=== PATIENT | female | born 1990 | race Caucasian/White ===

== ENCOUNTER → 2020-07-26 10:44 | Outpatient (BNVA) | payer OTHER, SELFPAY | PROVIDERS: Visit Provider Nurse Practitioner Family | DX: Z20.828 Contact with and (suspected) exposure to other viral communicable diseases (principal); J06.9 Acute upper respiratory infection, unspecified | CPT/HCPCS: 87635 ==

== ENCOUNTER → 2021-05-27 12:29 | Outpatient (BNVA) | payer OTHER, SELFPAY | PROVIDERS: Visit Provider Nurse Practitioner Family | DX: Z20.822 Contact with and (suspected) exposure to COVID-19 (principal) | CPT/HCPCS: 87635 ==

== ENCOUNTER → 2022-09-28 15:14 | Outpatient (BNVA) | payer OTHER, SELFPAY | PROVIDERS: Visit Provider Family Medicine | DX: R20.0 Anesthesia of skin (principal); R49.0 Dysphonia | CPT/HCPCS: 82607; 82746; 84443; 85025 ==

== ENCOUNTER 2023-04-22 14:13 | Outpatient (CLI) | payer OTHER, SELFPAY ==
--- NOTE | 2023-04-22 14:30 | MR_ITS ---
WS: [id number] MRI BRAIN WITHOUT CONTRAST HISTORY: worsening headaches, hx complex migraines COMPARISON: 09/09/2009 TECHNIQUE: Diffusion imaging, multiplanar T1, T2 and FLAIR imaging obtained. No evidence for acute infarct or hemorrhage. Watson-white matter differentiation is normal. No remote or acute infarcts are volume loss. Ventricles and extra-axial spaces are normal. Normal hippocampal formations. Minimal inferior displacement of the cerebellar tonsils consistent with ectopia. Very similar to the prior study. No Chiari malformation. No fourth ventricle obstruction. No inferior displacement of cer ebellar tonsils. The sella turcica and pituitary gland are unremarkable. Dural venous sinuses and [place] demonstrate no abnormality on this unenhanced studies. Paranasal sinuses: Clear. Mastoid air cells: Normal. Calvarium and scalp: Intact. IMPRESSION: 1. No acute infarct or intracranial edema. 2. Very mild cerebellar ectopia is stable. 3. No small vessel ischemic disease.
== END 2023-04-22 14:14 | disposition home or self-care (01) ==
PROVIDERS: PCP Family Medicine; Visit Provider Family Medicine
DX: G43.109 Migraine with aura, not intractable, without status migrainosus (principal)
CPT/HCPCS: 70551

== ENCOUNTER 2023-04-23 08:03 | Day surgery (SDC) | payer OTHER, SELFPAY ==
[2023-04-22 16:06] VITALS: BMI 29.2
[2023-04-23] VITALS (10 sets, daily range): BP systolic 101–120; BP diastolic 60–87; PULSE 54–91; RESP 14–18; TEMP 36.1–36.6; O2SAT 95–99
[2023-04-23 08:44] LABS: OR HCG Qualitative Urine Negative (Negative)
[2023-04-23] MEDS: acetaminophen 1,000 MG/100 ML PIGGYBACK 400 MG IV (08:57)
[2023-04-23] MEDS: ketorolac 30 mg/mL INJ IVP (08:58)
[2023-04-23] MEDS: sodium chloride 0.9% 1,000 ML 30 ML IV (09:09)
--- NOTE | 2023-04-23 11:35 | P.ANESASSM_ITS ---
Pre-Anesthetic Assessment Height/Weight: Height 1.8 m Weight 95.254 kg Temp Pulse Resp BP Pulse Ox O2 Del Method 97 F L 91 16 104/87 96 Room Air 04/23/23 08:47 04/23/23 08:47 04/23/23 08:47 04/23/23 08:47 04/23/23 08:47 04/23/23 08:47 Preop Diagnosis: Left ulnar nerve entrapment at wrist and elbow Operation Date: 04/23/23 09:50 Proposed Procedures p Cubital Tunnel Release(Left) - Patricio Straussatt, DO s Ulnar Nerve Transposition(Left) - Patricio Noguera, DO Familial anesthetic complications: None Was Beta Mariama taken within 24 hours: N/A Was Clonidine taken within 24 hours: N/A Last intake: Intake Last Liquid Date 04/22/23 Last Liquid Time 21:00 Last Solid Date 04/22/23 Last Solid Time 19:00 Social No alcohol and No tobacco Exam alert, oriented x 3, clear to auscultation bilaterally and regular rate & rhythm Airway Mallampati: Class II Dentition: full Anesthetic Plan ASA status: 2 Anesthesia: MAC Risk of > 500 ml blood loss (7ml/kg in children): No Medications/Allergies Home Medications Medication Instructions Recorded Confirmed Last Taken Type albuterol sulfate 90 mcg/actuation 2 inh inhalation Q4H PRN shortness 04/11/23 04/23/23 04/16/23 Rx aerosol inhaler of breath or wheezing #6.7 grams sumatriptan succinate 25 mg tablet See Rx Instructions PO .COMPLEX 04/23/23 04/23/23 04/16/23 History PRN h/a Allergies Allergy/AdvReac Type Severity Reaction Status Date / Time No Known Allergies Allergy Verified 04/23/23 08:34 Current Medications Generic Name Dose Route Start Last Admin Trade Name Freq PRN Reason Stop Dose Admin Sodium Chloride 1,000 mls @ 30 mls/hr 04/23/23 08:15 04/23/23 09:09 Sodium Chloride 0.9% IV 04/24/23 08:14 30 mls/hr .Q24H JACOBO Administration PFSH Anesthesia Surgical History History of tonsillectomy Family History Father Rheumatoid arthritis Social History Smoking and tobacco status: former smoker Quit status (tobacco): has quit using tobacco Year quit tobacco: jul 2022 Former quit date comment: 1ppd Alcohol intake: current Alcohol intake frequency: holidays/special occasions only Substance/Drug Use: never Lives independently: Yes Household members: children Number of children: 1 Current occupational status: employed Current occupation: patient financial services at [employer] Data Anesthesia Cardiac Studies: No Data to Display
--- NOTE | 2023-04-23 12:12 | P.HPUD_ITS ---
Surgery/Procedure H&P Update DATE OF PROCEDURE: April 23, 2023 DATE H&P PERFORMED: 04/01/23 H&P UPDATE INFORMATION: I have reviewed H&P completed within last 30 days, I have examined patient prior to procedure and No changes to prior documentation CHANGES TO PREVIOUS DOCUMENTATION: Patient continues to have persistent exacerbated symptoms by compression of the ulnar nerve at the wrist and the elbow although her nerve conduction study f indings were not consistent with ulnar nerve neuropathy she does have consistent ulnar nerve symptoms on the small and part of the ring finger she has failed an injection at this point in time like to proceed with left ulnar nerve release at the cubital tunnel and Guyon's canal. Patient understands agrees with current plan. All questions answered. PREOP DIAGNOSIS: Left ulnar nerve entrapment at wrist and elbow PRIMARY INDICATION FOR PROCEDURE: Left ulnar nerve entrapment at wrist and elbow PLANNED PROCEDURE: Operation Date: 04/23/23 09:50 Proposed Procedures p Cubital Tunnel Release(Left) - Patricio Noguera DO s Ulnar Nerve Transposition(Left) - Patricio Noguera DO
[2023-04-23] MEDS: ceFAZolin 2,000 MG in sodium chloride 0.9% (plus) 50 ML 100 MG IV (12:17)
[2023-04-23] MEDS: lidocaine 1% INJ 10 mL (per mL) XX (12:51)
[2023-04-23] MEDS: ROPivacaine 0.5% SDV 30 mL 25 MG INJECTION (12:56)
--- NOTE | 2023-04-23 13:53 | P.BOP_ITS ---
Date of Procedure: 04/23/2023 Surgeon: Patricio Noguera DO Scan Coordinator(s): None Procedure(s) performed: 1. Left ulnar nerve release at Guyon's canal at the wrist 2. Left ulnar nerve release/decompression at the cubital tunnel Findings of the procedure(s): Ulnar nerve entrapment of the left upper extremity at Guyon's canal and cubital tunnel Estimated blood loss: 10 mL Specimen(s) removed: None Post-operative diagnosis: Left ulnar nerve entrapment at the wrist and elbow
--- NOTE | 2023-04-23 13:56 | PM.OP ---
Operative Report Date of procedure: April 23, 2023 Surgeon: Patricio Noguera DO Procedure: Preoperative diagnosis left ulnar nerve entrapment at the wrist and elbow Postop Diagnosis: Same(entrapment at Guyon's canal and cubital tunnel) Procedure done: Left ulnar nerve release at Guyon's canal Left?cubital?tunnel tunnel release (ulnar nerve decompression at elbow) Surgeon: Patricio Noguera DO Estimated blood loss: 10 mL Tourniquet? 30 minutes IV fluids: 1100mL Complications: None Findings: See operative report narrative Condition: stable Disposition: same day Brief History: Patient's been seen and worked up in the outpatient setting and findings consistent with preoperative diagnosis.? Patient has left cubital tunnel and left ulnar entrapment at guyons canal which has been worked up in the outpatient setting has physical exam findings consistent with this. Patient's nerve study showed only possible subtle carpal tunnel but she has no median nerve paresthesias or complaints on examination or on her HPI. All of her complaints are in the ulnar nerve distribution and is provocative on physical exam. Patient's failed conservative treatment.? As result through shared decision making agreed to proceed with?left ulnar nerve release at the wrist and at the elbow. We talked about tx options as nonoperative and operative intervention.? Understands risk benefits complication alternatives surgical nonsurgical treatment options.? Understanding risks pt agrees to proceed with surgical intervention. Understanding these risks pt agrees to proceed with surgery.? Consent obtained in office. Procedure: Patient seen evaluate in the preoperative holding area.? Consent was reviewed and signed with patient.? Correct extremity marked.? Patient seen evaluated by anesthesia department once cleared for surgery was then taken back to the operative suite placed in supine position all bony prominences well-padded patient properly secured to bed.? left upper extremity placed onto armboard.? Nonsterile tourniquet applied left upper arm.? Patient then underwent anesthesia per the anesthesia department.? Patient's left upper extremity was then prepped and draped in standard orthopedic fashion.? Final timeout performed.? Patient received appropriate preoperative antibiotics. Esmarch was used exsanguinate the left upper extremity.? Tourniquet was insufflated to 250 mmHg. I started with my release of the ulnar nerve distally. An extensive laterally based palmar incision that extended proximal past the wrist crease with a Pamela incision was made directly over Guyon's canal. At this point in time incision was made between the Pisa form and hamate to follow neurovascular bundle of Guyon's canal. sharp scalpel incision was subsequently made through skin and then I switched to Littler dissection scissors. At this point in time I dissected down over top guyons canal release the brevis muscle belly along the hypothenar region to obtain access into Guyon's canal. Thick band of fascia was noted proximally just proximal to the wrist crease this was released and made sure there was complete decompression of the ulnar nerve proximally just prior to Guyon's canal subsequently released guyon canal and direct visualization with sharp scalpel excision as well as Littler dissection scissors with care utilizing my corporate legal assistant to protect the neurovascular bundle. At this point in time I continued to perform release of the fascia/the roof of Guyon's canal all the way to its most distal extent and the nerve was found to be completely free and untethered. I then in order to perform release of the deep motor branch I then mobilized my dissection around the ulnar nerve and identified the deep motor branch as it courses towards the under knee fascia connected with the hamate. I then utilized dissection scissors and under direct visualization completed my release carefully of the fascial bands tethering over top of the deep motor branch. At this point in time the ulnar nerve was completely decompressed through Guyon's canal and ulnar nerve had complete laxity with no areas of entrapment or tethering. No masses were noted within the contents of the guyons canal.? This completed the ulnar nerve release at the wrist. I subsequently irrigated the wound bed and placed a wet Ray-Kyleigh into the incision for later closure. Next marked out the landmarks of the left elbow of the medial epicondyle and olecranon and made a curvilinear incision following the course of the ulnar nerve at the medial aspect of the elbow.? Sharp scalpel incision was made through skin and subcutaneous tissue.? Next I switched to Littler dissection scissors and spread in plane of the medial antebrachial cutaneous nerve branching which was protected throughout this part of the dissection.? Then I directly came down over the fascia and identified the 2 heads of the FCU fascia and split in the middle and subsequently identified my ulnar nerve distally.? This was then completely released distally under direct visualization and loupe magnification.? Once the nerve was then identified I then subsequently tracked this proximally and released this through Moreira's ligament as well as complete decompression of the nerve proximally all the way past the intermuscular septum.? The nerve was completely released and decompressed both proximally and distally.? I then took the elbow through range of motion and there was no instability or subluxating of the ulnar nerve.? This completed?cubital?tunnel release.? ?Next the wound bed was thoroughly irrigated.? Tourniquet was deflated.? Hemostasis was satisfactory at the?cubital?tunnel release surgery site. I then inspected the carpal tunnel incision and this was found to have satisfactory hemostasis and all this was maintained through bipolar electrocautery.? At this point time I sequentially closed?cubital?tunnel site with 3-0 Vicryl suture in a running horizontal mattress nylon stitch.? ? The guyons canal release surgery was then closed in standard interrupted mattress fashion.? Dressing was Xeroform 4 x 4's ABD Curlex soft roll and an Ricci wrap has a bulky soft dressing and volar splint. Patient was then awakened from anesthesia and taken to PACU in stable condition. Disposition: Patient taken to PACU in stable condition recovering well.? Patient will receive appropriate discharge instructions as well as pain medication postoperatively.? We will follow-up with me in the office in 2 weeks.? Patient understands agrees with current plan.? All questions answered.? pt understands if any questions or concerns and contact the office for follow-up appointment..
[2023-04-23] MEDS: TRAMadol 50 mg Tablet PO (14:46)
--- NOTE | 2023-04-23 15:32 | SUR.PHASEII ---
1516 tramadol effective 1530 awaiting ride to go home
== END 2023-04-23 15:40 | disposition home or self-care (01) ==
PROVIDERS: Anesthesiology; PCP Family Medicine; Visit Provider Student in an Organized Health Care Education/Training Program
PROC: (CPT 64718; principal; 2023-04-23 09:30)
PROC: (CPT 64718; 2023-04-23 09:30)
DX: G56.22 Lesion of ulnar nerve, left upper limb (principal); Z87.891 Personal history of nicotine dependence
CPT/HCPCS: 64718; 64719; 84703; J0131; J0690; J1100; J1885; J2405; J2704; J2795; J3010; J7030

== ENCOUNTER → 2023-07-07 10:03 | Outpatient (BNVA) | payer OTHER, SELFPAY | PROVIDERS: PCP Family Medicine; Visit Provider Family Medicine | DX: Z32.01 Encounter for pregnancy test, result positive (principal) | CPT/HCPCS: 81025 ==

== ENCOUNTER → 2023-07-13 13:02 | Outpatient (BNVA) | payer OTHER, SELFPAY | PROVIDERS: PCP Family Medicine; Visit Provider Nurse Practitioner Women's Health | DX: Z32.00 Encounter for pregnancy test, result unknown (principal); G43.109 Migraine with aura, not intractable, without status migrainosus | CPT/HCPCS: 81025 ==

== ENCOUNTER → 2023-07-26 09:38 | Outpatient (BNVA) | payer OTHER, MEDICAID, SELFPAY | PROVIDERS: PCP Family Medicine; Visit Provider Nurse Practitioner Women's Health | DX: Z36.87 Encounter for antenatal screening for uncertain dates (principal) | CPT/HCPCS: 76801 ==

== ENCOUNTER → 2023-07-28 09:56 | Outpatient (BNVA) | payer OTHER, MEDICAID, SELFPAY | PROVIDERS: PCP Family Medicine; Visit Provider Nurse Practitioner Women's Health | DX: Z34.90 Encounter for supervision of normal pregnancy, unspecified, unspecified trimester (principal) | CPT/HCPCS: 80307; 84315; 84439; 84443; 84481; 85025; 86592; 86762; 86803; 86850; 86900; 87086; 87340; 87806 ==

== ENCOUNTER → 2023-08-10 14:45 | Outpatient (BNVA) | payer OTHER, MEDICAID, SELFPAY | PROVIDERS: PCP Family Medicine; Visit Provider Obstetrics & Gynecology | DX: Z34.90 Encounter for supervision of normal pregnancy, unspecified, unspecified trimester (principal) | CPT/HCPCS: 84315; 87624 ==

== ENCOUNTER → 2023-10-04 09:21 | Outpatient (BNVA) | payer OTHER, MEDICAID, SELFPAY | PROVIDERS: PCP Family Medicine; Visit Provider Obstetrics & Gynecology | DX: Z34.81 Encounter for supervision of other normal pregnancy, first trimester (principal) | CPT/HCPCS: 76805; 84315 ==

== ENCOUNTER → 2023-11-03 07:50 | Outpatient (BNVA) | payer OTHER, MEDICAID, SELFPAY | PROVIDERS: PCP Family Medicine; Visit Provider Nurse Practitioner Women's Health | DX: Z34.81 Encounter for supervision of other normal pregnancy, first trimester (principal) | CPT/HCPCS: 84315; 87086 ==

== ENCOUNTER → 2023-11-10 15:18 | Outpatient (BNVA) | payer OTHER, MEDICAID, SELFPAY | PROVIDERS: PCP Family Medicine; Visit Provider Obstetrics & Gynecology | DX: Z36.9 Encounter for antenatal screening, unspecified (principal) | CPT/HCPCS: 76816 ==

== ENCOUNTER → 2023-12-01 07:58 | Outpatient (BNVA) | payer OTHER, MEDICAID, SELFPAY | PROVIDERS: PCP Family Medicine; Visit Provider Obstetrics & Gynecology | DX: Z34.81 Encounter for supervision of other normal pregnancy, first trimester (principal) | CPT/HCPCS: 82950; 84315 ==

== ENCOUNTER → 2024-01-03 15:28 | Outpatient (BNVA) | payer OTHER, MEDICAID, SELFPAY | PROVIDERS: PCP Family Medicine; Visit Provider Obstetrics & Gynecology | DX: Z36.9 Encounter for antenatal screening, unspecified (principal) | CPT/HCPCS: 76816 ==

== ENCOUNTER → 2024-01-25 07:42 | Outpatient (BNVA) | payer OTHER, MEDICAID, SELFPAY | PROVIDERS: PCP Family Medicine; Visit Provider Obstetrics & Gynecology | DX: Z34.81 Encounter for supervision of other normal pregnancy, first trimester (principal) | CPT/HCPCS: 84315; 87081 ==

== ENCOUNTER → 2024-02-15 08:03 | Outpatient (BNVA) | payer OTHER, MEDICAID, SELFPAY | PROVIDERS: PCP Family Medicine; Visit Provider Obstetrics & Gynecology | DX: Z34.81 Encounter for supervision of other normal pregnancy, first trimester (principal) | CPT/HCPCS: 81000 ==

== ENCOUNTER → 2024-02-21 13:14 | Outpatient (BNVA) | payer OTHER, MEDICAID, SELFPAY | PROVIDERS: PCP Family Medicine; Visit Provider Obstetrics & Gynecology | DX: Z34.81 Encounter for supervision of other normal pregnancy, first trimester (principal) | CPT/HCPCS: 76819 ==

== ENCOUNTER 2024-02-22 18:53 | Inpatient (IN) | payer OTHER, MEDICAID, SELFPAY ==
[2024-02-22] VITALS (16 sets, daily range): BP systolic 113–147; BP diastolic 59–91; PULSE 61–89; TEMP 36.6–36.7; BMI 34.2
[2024-02-22 20:01] LABS: Basophils % 0.4 %; Eosinophils # 0.2 10^3/uL (0.0-0.8); Eosinophils % 1.7 %; Hematocrit 34.6 % (36-47); Lymphocytes # 2.9 10^3/uL (0.8-4.8); Mean Corpuscular HGB Conc 34.4 g/dL (30-55); Mean Corpuscular Hemoglobin 32.5 pg (27-33); Mean Corpuscular Volume 94.5 fl (85-98); Mean Platelet Volume 11.8 fL (7.4-10.4); Monocytes # 0.8 10^3/uL (0.2-0.9); Monocytes % 8.2 %; Neutrophils # 6.11 10^3/uL (1.8-7.7); Neutrophils % 60.2 %; Nucleated Red Blood Cells % 0 %; Platelet Count 243 10^3/cmm (157-399); Red Blood Count 3.66 10^6/uL (3.85-5.65); Red Cell Distribution Width 13.1 % (12.1-15.1); White Blood Count 10.14 10^3/uL (3.29-11.43)
[2024-02-22 20:24] LABS: Slide Review Slide Review Perform
[2024-02-22 20:46] LABS: Amphetamines Screen Urine Negative (Negative); Barbiturates Screen Urine Negative (Negative); Benzodiazepines Screen Urine Negative (Negative); Cocaine Screen Urine Negative (Negative); Opiate Screen Urine Negative (Negative); PCP Screen Urine Negative (Negative); THC Screen Urine Negative (Negative)
--- NOTE | 2024-02-22 20:54 | P.HP_ITS ---
Providers/Chief Complaint 2 Admitting Physician: Ger Myers MD Primary SPEECH COMMUNICATION PROFESSOR: Ger Myers MD Primary Care Provider: Maisha Dempsey MD Chief Complaint: IOL HPI SPEECH COMMUNICATION PROFESSOR History of Present Illness Rukhsana Barbosa is a 33 year old female A1 EDC February 18, 2024 At 40 w 4 d Admitted for induction of labor No complications No c/o + movements POBHx: 2011, vaginal delivery 2016, SAB PGYNHx: h/o genital herpes. Has not had an outbreak ?in a long time? PMHx: migraines Present Details : 3 Para: 1 Labs Rubella: Immune RPR: Negative GBS: Negative Medications/Allergies Home Medications Medication Instructions Recorded Confirmed Last Taken Type sumatriptan succinate 25 mg tablet See Rx Instructions PO .COMPLEX 04/23/23 02/21/24 04/16/23 History PRN h/a [id number]-ejshzzdfvhwwe-alalyasv 1 cap PO Q8H PRN pain #30 caps 07/13/23 02/21/24 Unknown Rx 50 mg-300 mg-40 mg capsule (Fioricet) docosahexaenoic acid 200 mg mg PO 11/15/23 02/21/24 Unknown History capsule ( DHA) acyclovir 400 mg tablet 400 mg PO DAILY #30 tabs 12/01/23 02/21/24 Unknown Rx Allergies Allergy/AdvReac Type Severity Reaction Status Date / Time No Known Allergies Allergy Verified 02/22/24 19:57 PFSH SPEECH COMMUNICATION PROFESSOR 2 PFSH: Surgical History History of decompression of ulnar nerve History of carpal tunnel release History of tonsillectomy Family History Father Rheumatoid arthritis Social History Smoking and tobacco/nicotine status: former use of tobacco/nicotine History History History 2 3 Term 1 0 Miscarriages/Ectopic 1 Living Children 1 Care ISMAEL Calculator 2 Estimated Delivery Date Method Current WG Current Estimate 02/18/24 LMP (Certain) 40w 4d Other Estimates 02/16/24 Ultrasound #1 40w 6d Vitals/I&O/Wt Last Vital Signs Pulse 64 02/22/24 20:32 BP 135/82 02/22/24 20:32 O2 Del Method Room Air 02/22/24 18:50 Weight last 48 hrs Weight 246 lb Physical Exam 2 Narrative: Weight 240 lbs; 5?11? VS normal General: comfortable, awake, alert Lungs: clear Cor: RRR FH 37 cm, cephalic Cervix: 3 cm Ext: no edema External monitor: heart tracing good variability, + accelerations Data 02/22/24 19:30 Results Labs OB ([facility]): 2 Obstetrics US 01/03/24 Obstetrics US/Biophysical Profile Blood Type O Positive 02/22/24 Antibody Screen Negative 02/22/24 Hct 34.6 % (36-47) L 02/22/24 Hgb 11.90 g/dL (11.27-16.99) 02/22/24 Rho(D) Type Rh positive 02/22/24 Plt Count 243 10^3/cmm (157-399) 02/22/24 Hep Bs Antigen Non-reactive (Nonreactive) 07/28/23 Hep Bs Antibody 4.3 (11.5-1000) L 06/26/22 Hepatitis C Antibody Non-reactive (Nonreactive) 07/28/23 Rubella IgG Antibody 8.0 IU/mL (0.0-10.0) 07/28/23 RPR Nonreactive (Nonreactive) 07/28/23 HIV 1&2 Ab & HIV 1 Ag Non-reactive (Non-Reactiv) 07/28/23 TSH 1.84 uIU/mL (0.27-4.20) 07/28/23 Free T4 0.88 ng/dL (0.82-1.77) 07/28/23 Cystic Fibrosis Screen Negative 07/28/23 Glucose 1 Hr 50 gm 111 mg/dL (85-140) 12/01/23 VZV IgG Antibody 2972.00 index 06/26/22 HCG, Qual Positive (Negative) H 07/13/23 Urine Opiates Screen Negative ng/mL (Negative) 02/22/24 Ur Barbiturates Screen Negative ng/mL (Negative) 02/22/24 Ur Phencyclidine Scrn Negative ng/mL (Negative) 02/22/24 Ur Amphetamines Screen Negative ng/mL (Negative) 02/22/24 U Benzodiazepines Scrn Negative ng/mL (Negative) 02/22/24 Urine Cocaine Screen Negative ng/mL (Negative) 02/22/24 U Marijuana (THC) Screen Negative ng/mL (Negative) 02/22/24 Micro Urine Specimen 11/03/23 Pap Smear Interpret See note 08/10/23 A&P Assessment and plan (1) Encounter for induction of labor: 40 w 4 d Admitted for induction of labor Fetus reassuring Plan start Pitocin per protocol h/o x one (2) Herpes simplex type 2 infection: h/o genital herpes has been on acyclovir 400 mg daily since 34 weeks Attestations 2 Medical Necessity Statement*: patient at 40 w 4 d; admitted for induction of labor Coding Level of Care Code Acute Code for Chg Fwd Diagnoses Encounter for induction of labor Z34.90 Herpes simplex type 2 infection B00.9 Time Spent (min) 30
[2024-02-22] MEDS: oxytocin 30 UNIT/500 ML BAG IV (21:00)
[2024-02-22] MEDS: dextrose 5%-lactated ringers 1,000 ML 125 ML IV (21:01)
[2024-02-23] VITALS (36 sets, daily range): BP systolic 113–161; BP diastolic 59–98; PULSE 52–93; RESP 16–18; TEMP 36.6–36.8; O2SAT 95–100
[2024-02-23] MEDS: lactated ringers 1,000 ML 999 ML IV ×2 (00:40→01:55)
--- NOTE | 2024-02-23 01:21 | ANES.PREANE2 ---
Pre-Anesthetic Assessment Height/Weight: Height 1.8 m Weight 111.584 kg Pulse BP Pulse Ox O2 Del Method 65 148/98 97 Room Air 02/23/24 01:17 02/23/24 01:17 02/23/24 01:15 02/22/24 18:50 Preop Diagnosis: labor pains epidural Was Beta Mariama taken within 24 hours: N/A Was Clonidine taken within 24 hours: N/A Exam alert, oriented x 3, clear to auscultation bilaterally and regular rate & rhythm Airway Submandibular: within normal limits Cervical ROM: within normal limits Mallampati: Class II Dentition: full Pulmonary None reported CV/HEM None reported None reported Hepatic None reported GI Gastroesophageal Reflux Disease Metabolic None reported Musc/skel None reported Neuropsych None reported Anesthetic Plan ASA status: 2 Anesthesia: Regional (specify below) Risk of > 500 ml blood loss (7ml/kg in children): No Medications/Allergies Home Medications Medication Instructions Recorded Confirmed Last Taken Type sumatriptan succinate 25 mg tablet See Rx Instructions PO .COMPLEX 04/23/23 02/21/24 04/16/23 History PRN h/a duizvyevzk-adpeoxkcemtch-mkurzqkd 1 cap PO Q8H PRN pain #30 caps 07/13/23 02/21/24 Unknown Rx 50 mg-300 mg-40 mg capsule (Fioricet) docosahexaenoic acid 200 mg mg PO 11/15/23 02/21/24 Unknown History capsule ( DHA) acyclovir 400 mg tablet 400 mg PO DAILY #30 tabs 12/01/23 02/21/24 Unknown Rx Allergies Allergy/AdvReac Type Severity Reaction Status Date / Time No Known Allergies Allergy Verified 02/22/24 19:57 Current Medications Generic Name Dose Route Start Last Admin Trade Name Freq PRN Reason Stop Dose Admin Dextrose/Lactated Ringer's 1,000 mls @ 125 mls/hr 02/22/24 19:45 02/23/24 00:40 Dextrose 5%-Lactated Ringers IV 0 mls/hr .Q8H JACOBO Infusion Oxytocin 30 unit in 500 mls @ 1 mls/hr 02/22/24 19:45 02/23/24 00:15 Pitocin IV 11 milliunit/min .Q24H JACOBO 11 mls/hr Titration Protocol 1 MILLIUNIT/MIN Lactated Ringer's 1,000 mls @ 999 mls/hr 02/22/24 19:46 02/23/24 00:40 Lactated Ringers IV 999 mls/hr .Q1H1M PRN Administration See label comments [facility] Anesthesia Surgical History History of decompression of ulnar nerve History of carpal tunnel release History of tonsillectomy Family History Father Rheumatoid arthritis Social History Smoking and tobacco/nicotine status: former use of tobacco/nicotine Female Reproductive History : 3 Data Anesthesia 02/22/24 19:30 Short CBC 02/22/24 Range/Units 19:30 WBC 10.14 (3.29-11.43) 10^3/uL Hgb 11.90 (11.27-16.99) g/dL Hct 34.6 L (36-47) % MCV 94.5 (85-98) fl Plt Count 243 (157-399) 10^3/cmm Neut % (Auto) 60.2 % Neut # (Auto) 6.11 (1.8-7.7) 10^3/uL Blood Bank 02/22/24 19:30 Blood Type O Positive Rho(D) Type Rh positive Antibody Screen Negative Cardiac Studies: No Data to Display
[2024-02-23] MEDS: ROPivacaine syringe 100 MG/50 ML SYRINGE 10 MG EPIDURAL (01:36)
--- NOTE | 2024-02-23 01:42 | ANES.PROC ---
Anesthesia Procedures Procedure/Date: 02/23/24 epidural Procedure Narrative: epidural complete, bolus given, epidural pump initiated with ELECTRICAL CHECKOUT MECHANIC education given, vitals taken during procedure and satisfactory throughout, patient admits to decrease pain, report of procedure to OB RN Epidural: Time Out Performed: Yes Consents Signed: Procedure Consent Consent: requested by attending/covering physician, from patient, risks and benefits reviewed and patient agrees to proceed Lumbar Level: L3-L4 Epidural position: sitting Epidural procedure: sterile prep of area, 1% lidocaine to numb the area (3 mL), 18 g needle, negative for paresthesia passed, neg for paresthesia, test dose given, 1.5% xylocaine 1:200k epi (5 mL), 0.2% Ropivacaine bolus ml (5 mL), placed PCEA, no systemic response, sterile dressing applied, L.U.D. no apparent complications and 0.2% Ropiavacaine @ mls/hr (13 mL/hr)
[2024-02-23] MEDS: ondansetron 2 mg/ML SDV 2 mL 4 MG IVP (01:55)
--- NOTE | 2024-02-23 02:20 | PM.DELIVERY ---
Delivery Note: Date of delivery: February 23, 2024 Pre-delivery diagnoses: 40 w 4 d induction of labor Post-delivery diagnoses: 40 w 4 d induction of labor vaginal delivery Procedure: induction of labor vaginal delivery Op report anesthesia: Epidural Delivering Physician: Ger Myers MD Estimated blood loss (mL): 300 Findings: , vigorous female infant Cord gases obtained Normal placenta and cord No episiotomy / lacerations EBL: 300 cc No complications Pre-Delivery Course: normal labor course Delivery: vaginal Post-Delivery Status: good History History History 3 Term 1 0 Miscarriages/Ectopic 1 Living Children 1 A&P Assessment and plan (1) Vaginal delivery: Coding Level of Care Code Acute Code for Chg Fwd Diagnoses Vaginal delivery O80 Time Spent (min) 45
[2024-02-23] MEDS: PRENATAL VIT NO.130/IRON/FOLIC 1 EACH TABLET PO (08:21)
[2024-02-23] MEDS: docusate sodium 100 mg Capsule PO ×2 (08:22→18:24)
[2024-02-23] MEDS: ibuprofen 800 mg tablet PO ×3 (08:22→20:43)
[2024-02-23 16:05] LABS: Hematocrit 28.9 % (36-47); Mean Corpuscular HGB Conc 33.6 g/dL (30-55); Mean Corpuscular Hemoglobin 32.4 pg (27-33); Mean Corpuscular Volume 96.7 fl (85-98); Mean Platelet Volume 11.5 fL (7.4-10.4); Platelet Count 179 10^3/cmm (157-399); Red Blood Count 2.99 10^6/uL (3.85-5.65); Red Cell Distribution Width 13.2 % (12.1-15.1); White Blood Count 9.93 10^3/uL (3.29-11.43)
--- NOTE | 2024-02-24 08:00 | ANE.PACU2 ---
Inpatient post-anesthesia follow up: Airway intact: Yes Vital signs: Temperature 98.5 F Pulse Rate 78 Respiratory Rate 16 Blood Pressure 117/75 Pulse Oximetry 95 Oxygen Delivery Me thod Room Air Oxygen Flow Rate Fraction of Inspir ed Oxygen Hydration adequate: Yes Nausea and vomiting: No Pain level: 1 Mental status: Baseline Epidural Start/End: Epidural Start Date: 02/23/24 Epidural Start Time: 01:28 Epidural End Date: 02/23/24 Epidural End Time: 03:54
[2024-02-24] MEDS: ibuprofen 800 mg tablet PO (08:49)
[2024-02-24] MEDS: PRENATAL VIT NO.130/IRON/FOLIC 1 EACH TABLET PO (08:49)
[2024-02-24] MEDS: docusate sodium 100 mg Capsule PO (08:49)
--- NOTE | 2024-02-24 09:24 | PM.OBGYDC ---
Discharge Providers TELEMARKETER SUPERVISOR Date of Admission: 02/22/24 18:53 Date of Discharge: 02/24/24 Attending Provider at Admission: Ger Myers MD Attending Provider at Discharge: Ger Myers MD Consults: none Primary TELEMARKETER SUPERVISOR: Ger Myers MD Primary Care Provider: Maisha Dempsey MD Diagnoses at Discharge Discharge Diagnosis (1) Vaginal delivery: Details from hospital stay: 33 y.o. A1 at 40 w 4 d no complications was admitted for induction of labor cervix was 3 cm at admission patient was started on pitocin per protocol heart tracing was reassuring throughout patient progressed to complete delivered vaginally a vigorous without any complications there were no perineal lacerations patient did well and was discharged to home on the first day Status: Acute Reason for Visit Reason for Visit: IOL Brief History: 33 y.o. A1 at 40 w 4 d no complications was admitted for induction of labor cervix was 3 cm at admission Hospital Course Hospital Course patient was started on pitocin per protocol heart tracing was reassuring throughout patient progressed to complete delivered vaginally a vigorous infant without any complications there were no perineal lacerations patient did well and was discharged to home on the first day Information Peripartum Data: Delivery Method: Vaginal Laceration description: None Episiotomy description: None complications: none Physical Exam Narrative: afebrile, VS normal comfortable, awake, alert Abd: soft, nontender. fundus firm Ext: no edema; nontender History History History 3 Term 1 0 Miscarriages/Ectopic 1 Living Children 1 Discharge Data Studies Completed and Pending Laboratory Results WBC 9.93 10^3/uL (3.29-11.43) 02/23/24 15:45 RBC 2.99 10^6/uL (3.85-5.65) L 02/23/24 15:45 Hgb 9.70 g/dL (11.27-16.99) L 02/23/24 15:45 Hct 28.9 % (36-47) L 02/23/24 15:45 MCV 96.7 fl (85-98) 02/23/24 15:45 MCH 32.4 pg (27-33) 02/23/24 15:45 MCHC 33.6 g/dL (30-55) 02/23/24 15:45 RDW 13.2 % (12.1-15.1) 02/23/24 15:45 Plt Count 179 10^3/cmm (157-399) 02/23/24 15:45 MPV 11.5 fL (7.4-10.4) H 02/23/24 15:45 Neut % (Auto) 60.2 % 02/22/24 19:30 Lymph % (Auto) 29.0 % 02/22/24 19:30 [place] % (Auto) 8.2 % 02/22/24 19:30 Eos % (Auto) 1.7 % 02/22/24 19:30 Baso % (Auto) 0.4 % 02/22/24 19:30 Neut # (Auto) 6.11 10^3/uL (1.8-7.7) 02/22/24 19:30 Lymph # (Auto) 2.9 10^3/uL (0.8-4.8) 02/22/24 19:30 [place] # (Auto) 0.8 10^3/uL (0.2-0.9) 02/22/24 19:30 Eos # (Auto) 0.2 10^3/uL (0.0-0.8) 02/22/24 19:30 Baso # (Auto) 0.0 10^3/uL (0.0-0.1) 02/22/24 19:30 Nucleated RBC % (auto) 0 % 02/22/24 19:30 Nucleated RBCs # 0.0 /100WBC 02/22/24 19:30 Urine Opiates Screen Negative ng/mL (Negative) 02/22/24 19:00 Ur Barbiturates Screen Negative ng/mL (Negative) 02/22/24 19:00 Ur Phencyclidine Scrn Negative ng/mL (Negative) 02/22/24 19:00 Ur Amphetamines Screen Negative ng/mL (Negative) 02/22/24 19:00 U Benzodiazepines Scrn Negative ng/mL (Negative) 02/22/24 19:00 Urine Cocaine Screen Negative ng/mL (Negative) 02/22/24 19:00 U Marijuana (THC) Screen Negative ng/mL (Negative) 02/22/24 19:00 Blood Type O Positive 02/22/24 19:30 Rho(D) Type Rh positive 02/22/24 19:30 Antibody Screen Negative 02/22/24 19:30 Procedures Performed induction of labor vaginal delivery Vitals Last Vital Signs Temp 97.9 F 02/23/24 21:53 Pulse 70 02/23/24 21:53 Resp 16 02/23/24 21:53 BP 125/79 02/23/24 21:53 Pulse Ox 95 02/23/24 21:53 O2 Del Method Room Air 02/23/24 21:53 Results Labs OB ([facility]): Obstetrics US 01/03/24 Obstetrics US/Biophysical Profile 02/21/24 Blood Type O Positive 02/22/24 Antibody Screen Negative 02/22/24 Hct 28.9 % (36-47) L 02/23/24 Hgb 9.70 g/dL (11.27-16.99) L 02/23/24 Rho(D) Type Rh positive 02/22/24 Plt Count 179 10^3/cmm (157-399) 02/23/24 Hep Bs Antigen Non-reactive (Nonreactive) 07/28/23 Hep Bs Antibody 4.3 (11.5-1000) L 06/26/22 Hepatitis C Antibody Non-reactive (Nonreactive) 07/28/23 Rubella IgG Antibody 8.0 IU/mL (0.0-10.0) 07/28/23 RPR Nonreactive (Nonreactive) 07/28/23 HIV 1&2 Ab & HIV 1 Ag Non-reactive (Non-Reactiv) 07/28/23 TSH 1.84 uIU/mL (0.27-4.20) 07/28/23 Free T4 0.88 ng/dL (0.82-1.77) 07/28/23 Cystic Fibrosis Screen Negative 07/28/23 Glucose 1 Hr 50 gm 111 mg/dL (85-140) 12/01/23 VZV IgG Antibody 2972.00 index 06/26/22 HCG, Qual Positive (Negative) H 07/13/23 Urine Opiates Screen Negative ng/mL (Negative) 02/22/24 Ur Barbiturates Screen Negative ng/mL (Negative) 02/22/24 Ur Phencyclidine Scrn Negative ng/mL (Negative) 02/22/24 Ur Amphetamines Screen Negative ng/mL (Negative) 02/22/24 U Benzodiazepines Scrn Negative ng/mL (Negative) 02/22/24 Urine Cocaine Screen Negative ng/mL (Negative) 02/22/24 U Marijuana (THC) Screen Negative ng/mL (Negative) 02/22/24 Micro Urine Specimen 11/03/23 Pap Smear Interpret See note 08/10/23 Discharge Plan Discharge Patient Disposition: Home Condition: Stable Prescriptions: Continued DHA 200 mg capsule 200 mg PO DAILY [id number] [Fioricet] 50-300-40 mg capsule 1 cap PO Q8H PRN (Reason: pain) Qty: 30 1RF sumatriptan succinate 25 mg tablet See Rx Instructions PO .COMPLEX PRN (Reason: h/a) Rx Instructions: take 1 tab at onset of headache; if no relief may repeat 1 tab after at least 2 hrs; max = 4 tabs/24 hr PO Discontinued acyclovir 400 mg tablet 400 mg PO DAILY Qty: 30 1RF Rx Instructions: start at 34 weeks Discharge Orders: Discharge Order (Routine); Ordered 02/24/24 Ordered By: Ger Myers Discharge Diet: Usual diet Discharge Activity: Increase activity as tolerated Patient Instructions: Opioid Safety Discharge Attestations TELEMARKETER SUPERVISOR Time Spent in Discharge Care*: less than 30 min Coding Level of Care Code Acute Code for Chg Fwd Diagnoses Vaginal delivery O80 Time Spent (min) 20
[2024-02-24 11:00] VITALS: BP 117/75; PULSE 78; RESP 16; TEMP 36.9
== END 2024-02-24 11:11 | disposition home or self-care (01) | DRG 806 ==
LOC: OBGYN 18:54
PROVIDERS: Admitting Provider Obstetrics & Gynecology; PCP Family Medicine; Visit Provider Obstetrics & Gynecology
DX: O48.0 Post-term pregnancy (principal); O98.32 Other infections with a predominantly sexual mode of transmission complicating childbirth; Z37.0 Single live birth; A60.00 Herpesviral infection of urogenital system, unspecified; Z3A.40 40 weeks gestation of pregnancy
CPT/HCPCS: 36415; 59025; 59409; 80306; 85025; 85027; 86850; 86900; 96374; 98960; J2405; J2590; J2795; J7120; J7121

== ENCOUNTER 2024-05-02 09:21 | Outpatient (CLI) | payer MEDICAID, SELFPAY | END 2024-05-02 09:22 | disposition home or self-care (01) | LOC: LAB 09:22 | PROVIDERS: PCP Family Medicine; Visit Provider Family Medicine | DX: K92.1 Melena (principal) | CPT/HCPCS: 87425 ==

== ENCOUNTER 2024-05-03 10:19 | Emergency (ER) | payer MEDICAID, SELFPAY ==
[2024-05-03 10:27] VITALS: BP 118/86; PULSE 99; RESP 18; TEMP 36.5; O2SAT 96; BMI 29.9
[2024-05-03 11:19] LABS: Basophils # 0.1 10^3/uL (0.0-0.1); Basophils % 0.5 %; Eosinophils # 0.1 10^3/uL (0.0-0.8); Eosinophils % 0.9 %; Hematocrit 39.1 % (36-47); Lymphocytes # 1.8 10^3/uL (0.8-4.8); Lymphocytes % 12.4 %; Mean Corpuscular Hemoglobin 32.1 pg (27-33); Mean Corpuscular Volume 94.4 fl (85-98); Mean Platelet Volume 10.1 fL (7.4-10.4); Monocytes # 1.6 10^3/uL (0.2-0.9); Monocytes % 10.8 %; Nucleated Red Blood Cells % 0 %; Platelet Count 280 10^3/cmm (157-399); Red Blood Count 4.14 10^6/uL (3.85-5.65); White Blood Count 14.81 10^3/uL (3.29-11.43)
[2024-05-03 11:39] LABS: Alanine Aminotransferase 11 U/L (0-33); Albumin Level 3.4 g/dL (3.5-5.2); Alkaline Phosphatase 121 U/L (35-105); Anion Gap 15.9 (5-19); Aspartate Amino Transferase 11 U/L (0-32); Blood Urea Nitrogen 7 mg/dL (6-20); Calcium 7.9 mg/dL (8.5-10.5); Carbon Dioxide 24 mmol/L (22-29); Chloride 97 mmol/L (98-107); Creatinine Clr Calc Pharmacy 129.8728; Globulin 2.9 g/dL (1.3-4.6); Glomerular Filtration Rate 83.1 mL/min (90-130); Glucose 117 mg/dL (65-115); Lipase 11 U/L (13-60); Osmolality Calculated 275 mOsm/kg (285-295); Potassium 3.9 mmol/L (3.5-5.1); Sodium 133 mmol/L (136-145); Total Bilirubin 0.5 mg/dL (0.15-1.2); Total Protein 6.3 g/dL (6.6-8.7)
[2024-05-03 11:46] LABS: HCG, Serum Qual Negative (Negative)
[2024-05-03] MEDS: diphenoxylate/atropine Tablet 1 TAB PO (12:29)
--- NOTE | 2024-05-03 12:40 | ED_ITS ---
HPI - Abdominal Pain 2 General: Chief Complaint: Abdominal Pain Stated Complaint: D/ABd Pain (Day5) Time Seen by Provider: 05/03/24 10:51 Source: patient Mode of arrival: ambulatory Limitations: no limitations History of Present Illness: 31-year-old female states been having so me lower abdominal cramping mainly on the left lower side and also has had diarrhea. She denies any fevers. She states that her diarrhea pains actually improved currently denies any pain currently and had severe cramping pain yesterday. Denies any vomiting denies any blood in her stools Associated Symptoms: Reports diarrhea; Denies chills, dysuria, fever(s), nausea and vomiting Related Data Home Medications Medication Instructions Recorded Confirmed sumatriptan succinate 25 mg tablet See Rx Instructions PO .COMPLEX 04/23/23 05/03/24 PRN Headache docosahexaenoic acid 200 mg 200 mg PO DAILY 11/15/23 05/03/24 capsule ( DHA) Previous Rx's Medication Instructions Recorded ondansetron 4 mg disintegrating 4 mg PO Q8H PRN nausea and 05/01/24 tablet vomiting #20 tabs ciprofloxacin HCl 500 mg tablet 500 mg PO BID #14 tabs 05/03/24 (Cipro) metronidazole 500 mg tablet 500 mg PO Q8H 7 days #21 tabs 05/03/24 Allergies Allergy/AdvReac Type Severity Reaction Status Date / Time No Known Allergies Allergy Verified 05/02/24 07:34 Review of Systems 2 Const: Denies: fever(s), chills, body aches or change in appetite ENMT: Denies: throat pain or dental pain Card: Denies: chest pain Resp: Denies: dyspnea GI: Reports: abdominal pain and diarrhea; Denies: nausea or vomiting : Denies: dysuria Musc: Denies: neck pain or back pain Skin/Breast: Denies: rash Neuro: Denies: headache(s) PFSH ED 2 PFSH: Medical History Vaginal delivery Encounter for induction of labor Herpes simplex type 2 infection Surgical History History of decompression of ulnar nerve History of carpal tunnel release History of tonsillectomy Family History Father Rheumatoid arthritis Social History Smoking and tobacco/nicotine status: former use of tobacco/nicotine Physical Exam 2 Const: COMMON NORMALS: no acute distress, patient oriented x3 and healthy appearing HENMT: COMMON NORMALS: normocephalic and atraumatic HEAD & SCALP: n ormocephalic and atraumatic Eye: COMMON NORMALS: Equal, round and reactive pupils present and EOMs intact bilaterally PUPIL: Yes Equal, round and reactive pupils present Neck/C-Spine: COMMON NORMALS: full ROM and supple Chest: COMMONS NORMALS: normal inspection of the chest and normal palpation of entire chest wall Resp: COMMON NORMALS: normal respiratory effort, No retractions, No use of accessory muscles and clear to auscultation bilaterally AUSCULTATION: clear to auscultation bilaterally Cardio: COMMON NORMALS: regular rate, regular rhythm and No murmurs present (Cardio) RATE: regular rate RHYTHM: regular rhythm GI: COMMON NORMALS: Normal to inspection, nondistended, normoactive bowel sounds present, Soft to palpation, non-tender and no masses PALPATION: Yes Soft to palpation Extremity: COMMON NORMALS: normal to inspection and full ROM Neuro: COMMON NORMALS: patient oriented x3, moves all extremities and no focal motor deficits Psych: COMMON NORMALS: mental status grossly normal, Normal thought process present and cooperative THOUGHT PROCESS: Normal thought process present Skin: COMMON NORMALS: no rashes or lesions noted and no wounds GENERAL SKIN EXAM: no rashes or lesions noted Course 2 Vital Signs: Vital signs: Vital Signs Temperature 97.7 F 05/03/24 10:27 Pulse Rate 87 05/03/24 12:55 Respiratory Rate 18 05/03/24 10:27 Blood Pressure 120/84 05/03/24 12:55 Pulse Oximetry 97 05/03/24 12:55 Oxygen Delivery Me thod Room Air 05/03/24 10:27 MDM - Abdominal Pain Medical Decision Making Patient presents here with diarrhea had some cramping abdominal pain she is no pain currently abdominal exam here is benign she has no tenderness she had a negative psoas sign no signs of appendicitis will start on Cipro Flagyl for likely colitis we will have a follow-up with PCP and return if worsening she understands agrees to plan. Medical Records I reviewed the patient's medical records. Lab Data I reviewed the patient's lab results. 05/03/24 11:00 05/03/24 11:00 Labs/Radiology: Laboratory Results WBC 14.81 10^3/uL (3.29-11.43) H 05/03/24 11:00 RBC 4.14 10^6/uL (3.85-5.65) 05/03/24 11:00 Hgb 13.30 g/dL (11.27-16.99) 05/03/24 11:00 Hct 39.1 % (36-47) 05/03/24 11:00 MCV 94.4 fl (85-98) 05/03/24 11:00 MCH 32.1 pg (27-33) 05/03/24 11:00 MCHC 34.0 g/dL (30-55) 05/03/24 11:00 RDW 12.0 % (12.1-15.1) L 05/03/24 11:00 Plt Count 280 10^3/cmm (157-399) 05/03/24 11:00 MPV 10.1 fL (7.4-10.4) 05/03/24 11:00 Neut % (Auto) 75.0 % 05/03/24 11:00 Lymph % (Auto) 12.4 % 05/03/24 11:00 [place] % (Auto) 10.8 % 05/03/24 11:00 Eos % (Auto) 0.9 % 05/03/24 11:00 Baso % (Auto) 0.5 % 05/03/24 11:00 Neut # (Auto) 11.10 10^3/uL (1.8-7.7) H 05/03/24 11:00 Lymph # (Auto) 1.8 10^3/uL (0.8-4.8) 05/03/24 11:00 [place] # (Auto) 1.6 10^3/uL (0.2-0.9) H 05/03/24 11:00 Eos # (Auto) 0.1 10^3/uL (0.0-0.8) 05/03/24 11:00 Baso # (Auto) 0.1 10^3/uL (0.0-0.1) 05/03/24 11:00 Nucleated RBC % (auto) 0 % 05/03/24 11:00 Nucleated RBCs # 0.0 /100WBC 05/03/24 11:00 Sodium 133 mmol/L (136-145) L 05/03/24 11:00 Potassium 3.9 mmol/L (3.5-5.1) 05/03/24 11:00 Chloride 97 mmol/L (98-107) L 05/03/24 11:00 Carbon Dioxide 24 mmol/L (22-29) 05/03/24 11:00 Anion Gap 15.9 (5-19) 05/03/24 11:00 BUN 7 mg/dL (6-20) 05/03/24 11:00 Creatinine 0.8 mg/dL (0.5-0.9) 05/03/24 11:00 GFR Calculation 83.1 mL/min (90-130) L 05/03/24 11:00 Glucose 117 mg/dL (65-115) H 05/03/24 11:00 Calculated Osmolality 275 mOsm/kg (285-295) L 05/03/24 11:00 Calcium 7.9 mg/dL (8.5-10.5) L 05/03/24 11:00 Total Bilirubin 0.5 mg/dL (0.15-1.2) 05/03/24 11:00 AST 11 U/L (0-32) 05/03/24 11:00 ALT 11 U/L (0-33) 05/03/24 11:00 Alkaline Phosphatase 121 U/L (35-105) H 05/03/24 11:00 Total Protein 6.3 g/dL (6.6-8.7) L 05/03/24 11:00 Albumin 3.4 g/dL (3.5-5.2) L 05/03/24 11:00 Globulin 2.9 g/dL (1.3-4.6) 05/03/24 11:00 Lipase 11 U/L (13-60) L 05/03/24 11:00 HCG, Qual Negative (Negative) 05/03/24 11:00 No radiology studies performed this visit Discharge Plan Discharge Patient Disposition: Home Clinical Impression: Abdominal pain, Diarrhea Condition: Stable Prescriptions: New metronidazole 500 mg tablet 500 mg PO Q8H 7 Days Qty: 21 0RF ciprofloxacin HCl [Cipro] 500 mg tablet 500 mg PO BID Qty: 14 0RF No Action DHA 200 mg capsule 200 mg PO DAILY ondansetron 4 mg tablet,disintegrating 4 mg PO Q8H PRN (Reason: nausea and vomiting) Qty: 20 0RF sumatriptan succinate 25 mg tablet See Rx Instructions PO .COMPLEX PRN (Reason: Headache) Rx Instructions: take 1 tab at onset of headache; if no relief may repeat 1 tab after at least 2 hrs; max = 4 tabs/24 hr PO Discharge Orders: Discharge ED (Routine); Ordered 05/03/24 Ordered By: Patricia Menjivar Referrals: Maisah Dempsey MD [Primary Care Provider] - 4-7 days Discharge Diet: Advance as tolerated Discharge Activity: Resume usual activity Patient Instructions: Acute Diarrhea (ED), Abdominal Pain (ED) Coding Level of Care Code ED Laboratory Technician for Ashli Ashraf
[2024-05-03 12:55] VITALS: BP 120/84; PULSE 87; O2SAT 97
== END 2024-05-03 12:56 | disposition home or self-care (01) ==
PROVIDERS: Emergency Provider Emergency Medicine; PCP Family Medicine
DX: R10.32 Left lower quadrant pain (principal); R19.7 Diarrhea, unspecified; Z87.891 Personal history of nicotine dependence
CPT/HCPCS: 36415; 80053; 83690; 84703; 85025; 99283

== ENCOUNTER 2024-06-11 11:51 | Emergency (ER) | payer MEDICAID, SELFPAY ==
[2024-06-11 12:10] VITALS: BP 134/75; PULSE 60; RESP 16; TEMP 36.5; O2SAT 96; BMI 28.3
--- NOTE | 2024-06-11 12:16 | W.ED.ANIMALB ---
HPI - Animal Bite General: Chief Complaint: Animal Bite Stated Complaint: dog bite on face Time Seen by Provider: 06/11/24 11:54 History of Present Illness: Patient presents to the ER with complaints of a dog bite on her right cheek, and scratch on her neck. This was a friend's dog who jumped up to play and accidentally bit her and scratched her. She is up-to-date on all of her immunizations. She can be watched. Patient is not allergic to any medicine but she is breast-feeding currently. Related Data Home Medications Medication Instructions Recorded Confirmed sumatriptan succinate 25 mg tablet See Rx Instructions PO .COMPLEX 04/23/23 05/11/24 PRN Headache docosahexaenoic acid 200 mg 200 mg PO DAILY 11/15/23 05/11/24 capsule ( DHA) Previous Rx's Medication Instructions Recorded ondansetron 4 mg disintegrating 4 mg PO Q8H PRN nausea and 05/01/24 tablet vomiting #20 tabs ciprofloxacin HCl 500 mg tablet 500 mg PO BID #14 tabs 05/03/24 (Cipro) amoxicillin 875 mg-potassium 1 tab PO Q12H #20 tabs 06/11/24 clavulanate 125 mg tablet Allergies Allergy/AdvReac Type Severity Reaction Status Date / Time No Known Allergies Allergy Verified 06/11/24 12:18 Review of Systems General: Reports: 10 or more systems reviewed and unremarkable except in HPI and below PFSH ED PFSH: Medical History Vaginal delivery Encounter for induction of labor Herpes simplex type 2 infection Surgical History History of decompression of ulnar nerve History of carpal tunnel release History of tonsillectomy Family History Father Rheumatoid arthritis Social History Smoking and tobacco/nicotine status: former use of tobacco/nicotine Physical Exam Const: COMMON NORMALS: no acute distress, average body habitus, patient oriented x3, no limitations, healthy appearing, alert and well nourished HENMT: COMMON NORMALS: normocephalic, atraumatic, hearing grossly normal bilaterally, external ears normal, Normal external nose present and moist oral mucous membranes HEAD & SCALP: normocephalic and atraumatic NOSE: Normal external nose present EXTERNAL EAR: Yes external ears normal Neck/C-Spine: COMMON NORMALS: full ROM, no lymphadenopathy, supple, no meningeal signs, no JVD and Thyroid normal THYROID: Thyroid normal Chest: COMMONS NORMALS: normal inspection of the chest and normal palpation of entire chest wall Resp: COMMON NORMALS: normal respiratory effort, No retractions, No use of accessory muscles and clear to auscultation bilaterally AUSCULTATION: clear to auscultation bilaterally Cardio: COMMON NORMALS: no JVD, regular rate, regular rhythm, S1 normal heart sound present, S2 normal heart sound present, No gallops present (Cardio), No clicks present (Cardio), No murmurs present (Cardio) and No rub (Cardio) RATE: regular rate RHYTHM: regular rhythm HEART SOUNDS: S1 normal heart sound present and S2 normal heart sound present GI: COMMON NORMALS: Normal to inspection, nondistended, normoactive bowel sounds present, Soft to palpation, non-tender, No hepatosplenomegaly present and no masses PALPATION: Yes Soft to palpation and Yes No hepatosplenomegaly present Neuro: COMMON NORMALS: patient oriented x3 SENSORIUM/ORIENTATION: Yes alert MENINGEAL SIGNS: Yes no meningeal signs Skin: NARRATIVE SKIN EXAM: Superficial abrasions to posterior chin, 1 mild abrasion scratch to right anterior cheek region no gapping. Not amendable to suture at this time. MDM - Animal Bite Medical Decision Making Laceration is not suturable. We will place patient on Augmentin for prophylaxis. Medical Records I reviewed the patient's medical records. Lab Data I reviewed the patient's lab results. No radiology studies performed this visit Discharge Plan Discharge Patient Disposition: Home Clinical Impression: Dog bite Condition: Stable Prescriptions: New amoxicillin-pot clavulanate 875-125 mg tablet 1 tab PO Q12H Qty: 20 0RF No Action DHA 200 mg capsule 200 mg PO DAILY ondansetron 4 mg tablet,disintegrating 4 mg PO Q8H PRN (Reason: nausea and vomiting) Qty: 20 0RF sumatriptan succinate 25 mg tablet See Rx Instructions PO .COMPLEX PRN (Reason: Headache) Rx Instructions: take 1 tab at onset of headache; if no relief may repeat 1 tab after at least 2 hrs; max = 4 tabs/24 hr PO ciprofloxacin HCl [Cipro] 500 mg tablet 500 mg PO BID Qty: 14 0RF Discharge Orders: Discharge ED (Routine); Ordered 06/11/24 Ordered By: Ramo De La Torre Referrals: Maisha Dempsey MD [Primary Care Provider] - Patient Instructions: Opioid Safety, Pain Management Coding Level of Care Code ED Industrial Photographer for Ashli Ashraf
[2024-06-11 12:28] VITALS: BP 107/66; PULSE 68; O2SAT 96
== END 2024-06-11 12:33 | disposition home or self-care (01) ==
PROVIDERS: Emergency Provider Emergency Medicine; PCP Family Medicine
DX: S01.451A Open bite of right cheek and temporomandibular area, initial encounter (principal); Z87.891 Personal history of nicotine dependence; W54.0XXA Bitten by dog, initial encounter
CPT/HCPCS: 99283